=== PATIENT | female | born 1950 | race Caucasian/White ===

== ENCOUNTER 2016-08-04 12:40 | Inpatient (IN) ==
--- NOTE | 2016-08-04 15:25 | Emergency Department Note ---
Disposition Clinical Impression: Left kidney mass Diverticulitis Qualifiers: Diverticulitis site: large intestine Diverticulitis bleeding: with bleeding Diverticulitis complication: without perforation or abscess Qualified Code(s): K57.33 - Diverticulitis of large intestine without perforation or abscess with bleeding Pneumonia Qualifiers: Pneumonia type: due to unspecified organism Disposition: Admitted As Inpatient Condition: Fair Time of Disposition: 20:15 GI Bleed HPI - General Chief complaint: ED GI Bleed Stated complaint: Blood in stool,syncope Time Seen by Provider: 08/04/16 14:15 Source: patient, family Limitations: no limitations - History of Present Illness HPI Narrative: Patient is a 66-year-old female who presents with one-day history of hematochezia. Patient states that yesterday she was working in her yard, moving bags of sanded, and developed an urge to defecate. She states that she was unable to have a bowel movement. Patient made a second attempt at bowel movement, felt lightheaded, and had syncope while sitting on the toilet. Patient was found by her within 1 minute. She found with her head leaning against the bathtub. was able to arouse her. Patient had 2 episodes of bloody bowel movement following the episode of syncope. She states that she did not notice black stool. Patient admitted to left lower quadrant abdominal pain rated 7 out of 10 that occurred simultaneously with episode of syncope. Patient states the pain radiated to the midline infraumbilical region. Patient states that the pain was worsened with movement, jarring, or bumps. Patient states that she went to bed last night with a pillow underneath her left lower quadrant which made the pain better. Patient admitted to another episode of hematochezia this morning. She states that the pain is a constant 2-3 out of 10 at this time with intermittent sharp stabbing pain. Pain is nonradiating at this time. Patient admits to associated fever, diaphoresis, weakness, and one episode of watery vomit. Patient denies blurry vision, upper respiratory symptoms, chest pain, cough, wheeze, dysuria, hematuria, vaginal discharge, vaginal bleeding, muscle aches, rash. Patient had her last colonoscopy 5-6 years ago with evidence of polyps and hemorrhoids. Patient states colonoscopy was performed by Dr. Rosario. - Related Data Home Medications Medication Instructions Recorded Confirmed Atorvastatin Calcium [Lipitor] 20 mg PO HS 08/04/16 08/04/16 Calcium Carbonate [Calcium] 1,200 mg PO DAILY 08/04/16 08/04/16 Garlic 1,000 mg PO DAILY 08/04/16 08/04/16 Multivitamin [Multi-Day Vitamins] 1 each PO DAILY 08/04/16 08/04/16 [place]-3/Dha/Epa/Fish Oil [Fish Oil 1,000 mg PO DAILY 08/04/16 08/04/16 1,000 mg Softgel] Quinapril/Hydrochlorothiazide 1 each PO DAILY 08/04/16 08/04/16 [Accuretic 20-12.5 mg Tablet] Solifenacin Succinate [Vesicare] 10 mg PO DAILY 08/04/16 08/04/16 Allergies Allergy/AdvReac Type Severity Reaction Status Date / Time No Known Allergies Allergy Verified 08/04/16 13:00 All systems ED: reviewed and negative except as stated. Constitutional: Reports: as per HPI Eyes: Reports: as per HPI ENT ED: Reports: as per HPI Cardiovascular: Reports: as per HPI Respiratory: Reports: as per HPI Gastrointestinal: Reports: as per HPI Genitourinary: Reports: as per HPI Musculoskeletal: Reports: as per HPI Integumentary: Reports: as per HPI Neurological: Reports: as per HPI Psychiatric: Reports: as per HPI Endocrine: Reports: as per HPI Hematological/Lymphatic: Reports: as per HPI Allergic/Immunologic: Reports: as per HPI Past Medical History - Past Medical History Medical history: Reports: hyperlipidemia, hypertension Psychiatric history: Reports: anxiety, depression - Social History Smoking Status: Never smoker Smokeless Tobacco Status: No Alcohol use: Reports: none Drug use: Reports: none Physical Exam - General Limitations: no limitations General appearance: alert - Head Head exam: atraumatic, normocephalic - Eye Eye exam: Present: normal appearance, EOMI - Neck Neck exam: Present: normal inspection, full ROM, trachea midline, other (O carotid bruit). Absent: tenderness - Chest Chest inspection: Present: normal inspection, symmetric chest wall rise. Absent : tenderness - Respiratory Respiratory exam: Present: normal lung sounds bilaterally. Absent: respiratory distress, wheezes, stridor, accessory muscle use - Cardiovascular Cardiovascular exam: Present: regular rate, normal rhythm, diastolic murmur, +S1 , +S2. Absent: systolic murmur - Abdominal Exam Abdominal exam: Present: soft, tenderness, guarding (Don Kemal regarding the left lower quadrant and right lower quadrant palpation), rebound (Rebound tenderness to palpation of right lower quadrant), normal bowel sounds. Absent: distention (Squeezing tenderness to palpation of left lower quadrant), rigidity Abdominal tenderness: Present: RLQ, LLQ - Extremities Exam Extremities exam: Present: full ROM - Neurological Exam Neurological exam: Present: oriented X3, CN II-XII intact, normal gait - Psychiatric Psychiatric exam: Present: normal affect, normal mood - Skin Skin exam: Present: warm, dry, intact Course Vital Signs Temperature 97.5 F L 08/04/16 12:55 Pulse Rate 103 08/04/16 12:55 Respiratory Rate 14 08/04/16 12:55 Blood Pressure 132/74 08/04/16 12:55 O2 Sat by Pulse Oximetry 97 08/04/16 12:55 Temperature 97.5 F L 08/04/16 12:55 Pulse Rate 102 08/04/16 19:46 Respiratory Rate 18 08/04/16 17:30 Blood Pressure 150/82 08/04/16 19:46 O2 Sat by Pulse Oximetry 96 08/04/16 19:46 Oxygen Delivery Oxygen Delivery Room Air GI Bleed - MDM Narrative Medical decision making narrative: Patient is a 66-year-old female who presents with left lower quadrant abdominal pain and hematochezia. On exam patient had exquisite tenderness to palpation of left lower quadrant. Patient was found to have evidence of diverticulitis on CT scan. CT scan also demonstrated a triangular opacification of the left lower lung and a left renal mass suspicious for renal cell carcinoma. Patient will be admitted for treatment of diverticulitis, pneumonia, and for futher work-up of renal mass. - Lab Data Lab results reviewed: Yes I reviewed the patient's lab results. Result diagrams: 08/04/16 16:38 08/04/16 16:38 Lab Results 08/04/16 08/04/16 Range/Units 16:38 16:38 WBC 15.6 H (4.3-11.1) K/mcL RBC 4.53 (3.82-4.97) M/mcL Hgb 13.9 (11.5-15.4) g/dL Hct 41.4 (35.3-44.9) % MCV 91.4 (83.0-100.0) fL MCH 30.7 (28.0-33.3) pg MCHC 33.6 (31.6-35.5) g/dL RDW 12.8 (11.5-14.5) % Plt Count 189 (140-400) K/mcL MPV 9.8 (9.4-12.4) fL Sodium 137 (136-145) mEq/L Potassium 3.9 (3.5-4.5) mEq/L Chloride 103 (98-109) mEq/L Carbon Dioxide 24 (19-29) mEq/L BUN 15 (7-20) mg/dL Creatinine 0.98 (0.57-1.11) mg/dL Est GFR ( Amer) > 60 (> 60) Est GFR (Non-Af Amer) 57 L (> 60) BUN/Creatinine Ratio 15 (6-26) Glucose 126 H (70-99) mg/dL Calculated Osmolality 286 (280-300) Calcium 9.3 (8.6-10.8) mg/dL - Radiology Data Radiology results reviewed: Yes I reviewed the patient's radiology results. - EKG Data EKG attestation: Yes I reviewed and interpreted this EKG. EKG results narrative: EKG demonstrated normal sinus rhythm at rate of [address] segment elevations, depressions, or T-wave changes.
[2016-08-04] MEDS ORDERED: 0.9 % Sodium Chloride 1,000 ML IVC ONE (15:44)
--- NOTE | 2016-08-04 15:47 | Emergency Department Note ---
START Narrative - START START: I examined this patient and my medical decision-making was reviewed with the MECHANICAL INSULATOR/PA/Advanced Practice Nurse/Resident Physician. I agree with the documented findings, disposition and treatment plan as described except to the extent set forth below. I did see the patient spoke with her. She did have an episode of blood in the stool and left lower quadrant pain and syncope yesterday. Was preceded by lightheadedness. No biting of tongue or blood in the mouth or seizure or shaking activity or incontinence. No localized numbness or weakness of the extremities, slurred speech, facial droop or confusion. Patient does have testing pending which includes labs and a CT scan at this point she is asymptomatic. 1547 I did review the EKG showing normal sinus rhythm with a rate of 93 without acute ischemic changes. There is some baseline artifact. No evidence of Brugada syndrome, hypertrophic cardiomyopathy, WPW, prolonged QT or any ischemia 1628
[2016-08-04 16:52] LABS: Hematocrit 41.4 % (35.3-44.9); Hemoglobin 13.9 g/dL (11.5-15.4); Mean Corpuscular HGB Conc 33.6 g/dL (31.6-35.5); Mean Corpuscular Hemoglobin 30.7 pg (28.0-33.3); Mean Corpuscular Volume 91.4 fL (83.0-100.0); Mean Platelet Volume 9.8 fL (9.4-12.4); Platelet Count 189 K/mcL (140-400); Red Blood Count 4.53 M/mcL (3.82-4.97); Red Cell Distribution Width 12.8 % (11.5-14.5)
[2016-08-04 17:05] LABS: BUN/Creatinine Ratio 15 (6-26); Blood Urea Nitrogen 15 mg/dL (7-20); Calcium 9.3 mg/dL (8.6-10.8); Carbon Dioxide 24 mEq/L (19-29); Chloride 103 mEq/L (98-109); Glucose 126 mg/dL (70-99); Osmolality,Calculated 286 (280-300); Potassium 3.9 mEq/L (3.5-4.5); Sodium 137 mEq/L (136-145); eGFR For African Americans > 60 (> 60); eGFR For Non-African Americans 57 (> 60)
[2016-08-04] MEDS ORDERED: *HR* Morphine 2 MG/ML SYRINGE IVP ONE (17:14)
[2016-08-04] MEDS ORDERED: MetroNIDAZOLE 500 MG/100 ML 500 MG/100 ML BAG IVPB ONE (17:54)
[2016-08-05] MEDS ORDERED: Ondansetron 4 MG/2 ML VIAL IVP PRN (00:24)
[2016-08-05] MEDS ORDERED: *HR* Morphine 2 MG/ML SYRINGE IVP PRN (00:24)
[2016-08-05] MEDS ORDERED: Acetaminophen 325 MG TABLET PO PRN (00:24)
[2016-08-05] MEDS ORDERED: Naloxone 0.4 MG/ML INJ IVP PRN (00:24)
[2016-08-05] MEDS ORDERED: *HR* OxyCODONE Immed Rel 5 MG TABLET PO PRN (00:24)
--- NOTE | 2016-08-05 00:31 | Internal Med History&Physical ---
<Matthew Wyatt - Last Filed: 08/05/16 01:17> Date of Encounter: 08/05/16 Time of Encounter: 00:31 Assessment and Plan (1) Diverticulitis Current visit: Yes Status: Acute Patient has leukocytosis with left lower quadrant pain and hematochezia. CT scan shows diverticulitis. We will treat with fluid hydration, bowel rest, IV antibiotics with Cipro and Flagyl. Patient's hemoglobin is stable. We will trend hemoglobin. No evidence of perforation or generalized peritonitis. Qualifiers: Diverticulitis site: large intestine Diverticulitis bleeding: with bleeding Diverticulitis complication: without perforation or abscess Qualified Code(s): K57.33 - Diverticulitis of large intestine without perforation or abscess with bleeding (2) Abnormal CT scan Current visit: Yes Status: Acute CT scan showed an incidental finding of a 1.6cm mass in the left kidney that is concerning for renal cell carcinoma. Radiology recommends a contrast enhanced CT. We will fluid hydrate the patient and perform CT scan abdomen and pelvis with IV contrast in the morning. We will consult urology for follow-up of this mass. CT scan also showed a left lower lobe infiltrate that is concerning for pneumonia. Clinically the patient has no signs and symptoms of pneumonia. Antibiotic regimen used to treat the patient's diverticulitis should cover for any evolving pneumonia. (3) Hypertension Current visit: Yes Status: Acute Stable this time. Continue home medication. Qualifiers: Hypertension type: essential hypertension Qualified Code(s): I10 - Essential (primary) hypertension (4) DVT prophylaxis Current visit: Yes Status: Acute Given the patient's medication pharmacologic DVT prophylaxis is contraindicated. We will use [facility] Internal Medicine - H&P: HPI Chief complaint: Bright red blood per rectum Admitted From: Emergency Dept Plans for Post Hospital Care: Home History of present illness: Ms. Laguna is a 66 year old female with history of hypertension who presents with bright blood per rectum. Patient states that yesterday she felt like she had the urge to defecate and had difficulty defecating and actually had a syncopal episode on the toilet. She was unable to defecate and had prior blood per rectum. She reports 3 episodes yesterday and one episode today. She states she never had anything like this before. She reports left lower quadrant abdominal pain that radiates to the right lower quadrant. She reports nausea with 1 episode of vomiting. She reports subjective fevers and chills. She denies dysuria, hematuria. Past Med Surg Social Fam HX - Past Medical History Medical history: hyperlipidemia, hypertension Psychiatric history: anxiety, depression - Past Surgical History Surgical History: appendectomy - Social History Smoking Status: Never smoker Smokeless Tobacco Status: No Alcohol use: none Drug use: none - Family History Mother Living Status: Hx Family GI Disorders: Yes (Diverticulitis) Internal Medicine - H&P: Meds Atorvastatin Calcium [Lipitor] 20 mg PO HS 08/04/16 [History] Calcium Carbonate [Calcium] 1,200 mg PO DAILY 08/04/16 [History] Garlic 1,000 mg PO DAILY 08/04/16 [History] Multivitamin [Multi-Day Vitamins] 1 each PO DAILY 08/04/16 [History] [place]-3/Dha/Epa/Fish Oil [Fish Oil 1,000 mg Softgel] 1,000 mg PO DAILY 08/04/16 [History] Quinapril/Hydrochlorothiazide [Accuretic 20-12.5 mg Tablet] 1 each PO DAILY 02/10 [History] Solifenacin Succinate [Vesicare] 10 mg PO DAILY 08/04/16 [History] Allergies No Known Allergies Allergy (Verified 08/04/16 13:00) All Systems PM: A 10-system review of systems was performed and is negative for pertinent findings except as documented above in the HPI. - Constitutional Constitutional: chills, fever(s) - EENT Eyes: no change in vision Nose, mouth and throat: no sinus pain, no sinus pressure, no sore throat - Cardiovascular Cardiovascular ROS IM: syncope, no chest pain, no dyspnea, no lightheadedness - Respiratory Respiratory: no cough, no dyspnea, no chest congestion, no excessive phlegm production, no change in phlegm color - Gastrointestinal Gastrointestinal: abdominal pain, hematochezia, nausea, vomiting, no hematemesis , no melena - Genitourinary Genitourinary: no dysuria, no hematuria - Musculoskeletal Musculoskeletal ROS IM: no numbness, no tingling - Neurological Neurological ROS: no numbness, no tingling, no weakness - Psychiatric Psychiatric: no anxiety - Allergic/Immunologic Allergic/Immunologic: no GI upset with certain foods - Constitutional Vitals: Temp Pulse Resp BP Pulse Ox 99.3 F 100 14 114/59 96 08/04/16 23:30 08/04/16 23:30 08/04/16 23:30 08/04/16 23:30 08/04/16 23:30 General appearance: Present: A&O X 3, pleasant, no acute distress, answers questions appropriately - Head Head exam: Present: atraumatic, normal inspection, normocephalic - ENT ENT exam: Present: mucous membranes moist - Respiratory Respiratory exam: Present: CTAB. Absent: rales, rhonchi, wheezes - Cardiovascular Cardiovascular exam: Present: RRR. Absent: gallop, rubs, systolic murmur - GI/Abdominal GI/Abdominal exam: Present: guarding, normal bowel sounds, soft, tenderness ( Left lower quadrant), no peritoneal signs. Absent: distended, firm, rigid - Extremities Exam Extremities exam: Present: warm. Absent: pedal edema, tenderness - Neurological Exam Neurological exam: Present: alert, CN II-XII intact, oriented X3, no focal deficits Internal Med - H&P Results - Labs CBC & Chem 7: 08/04/16 16:38 08/04/16 16:38 <Collin Rico - Last Filed: 08/05/16 03:19> Date of Encounter: 08/05/16 Time of Encounter: 02:05 - Constitutional Vitals: Temp Pulse Resp BP Pulse Ox 99.3 F 100 14 114/59 96 08/04/16 23:30 08/04/16 23:30 08/04/16 23:30 08/04/16 23:30 08/04/16 23:30 General appearance: Present: A&O X 3, pleasant, no acute distress - Head Head exam: Present: atraumatic, normal inspection - Expanded Head Exam Head exam expanded: Absent: general tenderness - Eye Eye exam: Present: EOMI, PERRL. Absent: scleral icterus Pupils: Present: normal accommodation - ENT ENT exam: Present: mucous membranes moist - Neck Neck exam general surgery: Present: full ROM, supple. Absent: tenderness - Respiratory Respiratory exam: Present: CTAB. Absent: rales, wheezes - Cardiovascular Cardiovascular exam: Present: RRR, +S1, +S2. Absent: diastolic murmur, systolic murmur - GI/Abdominal GI/Abdominal exam: Present: normal bowel sounds, soft, tenderness, no peritoneal signs. Absent: hepatomegaly, mass, rebound, splenomegaly - Extremities Exam Extremities exam: Absent: calf tenderness, joint swelling - Back Exam Back exam: Present: normal inspection. Absent: CVA tenderness (L), CVA tenderness (R) - Neurological Exam Neurological exam: Present: no focal deficits - Psychiatric Psychiatric exam: Present: normal affect, normal mood - Skin Skin exam: Present: dry, warm. Absent: rash Internal Med - H&P Results - Labs CBC & Chem 7: 08/04/16 16:38 08/04/16 16:38 - Diagnostic Studies CT scan - abdomen Status: image reviewed by me (report reviewed as well -- left renal mass noted) - Attending Attestation I discussed the patient KENAITZE, PMH, ROS, lab data, and exam findings with Dr. Wyatt. I then saw patient and examined her independently as well. Pt is in no distress, but she does have some LLQ pain and some guarding. She is asking for food, but I will keep her npo for now and ask my daytime colleagues to reassess her and her labs later today. We will continue IVF and IV antibiotics. I anticipate she will improve quickly and she will be permitted to have some PO intake soon. Regarding her left renal mass, I agree with the plan to CT scan her left kidney. Additionally, I agree with the urology consultation to assist with and coordinate care after discharge. Other than my comments noted above and noted exam findings, I agree with Dr. Wyatt's assessment and plan.
[2016-08-05] MEDS ORDERED: 0.9 % Sodium Chloride 1,000 ML ONE (00:39)
[2016-08-05] MEDS: 0.9 % Sodium Chloride 1,000 ML IVC SCH ×2 (00:56→12:45)
[2016-08-05] MEDS: MetroNIDAZOLE 500 MG/100 ML 500 MG/100 ML BAG IVPB SCH ×4 (01:10→23:32)
[2016-08-05 03:31] LABS: Basophils % 0.1 %; Eosinophils % 0.2 %; Hematocrit 37.3 % (35.3-44.9); Hemoglobin 12.6 g/dL (11.5-15.4); INR 1.3; Immature Granulocytes % 0.4 % (0-4); Lymphocytes # 1.5 K/mcL (0.6-4.6); Lymphocytes % 10.5 %; Mean Corpuscular HGB Conc 33.8 g/dL (31.6-35.5); Mean Corpuscular Hemoglobin 31.1 pg (28.0-33.3); Mean Corpuscular Volume 92.1 fL (83.0-100.0); Mean Platelet Volume 10.4 fL (9.4-12.4); Monocytes % 7.1 %; Neutrophils # 11.3 K/mcL (1.6-8.9); Platelet Count 163 K/mcL (140-400); Prothrombin Time 13.7 Seconds (9.4-12.1); Red Blood Count 4.05 M/mcL (3.82-4.97); Segmented Neutrophils % 81.7 %
[2016-08-05 03:41] LABS: BUN/Creatinine Ratio 17 (6-26); Blood Urea Nitrogen 14 mg/dL (7-20); Calcium 8.5 mg/dL (8.6-10.8); Carbon Dioxide 24 mEq/L (19-29); Chloride 105 mEq/L (98-109); Glucose 106 mg/dL (70-99); Magnesium 1.7 mg/dL (1.6-2.6); Osmolality,Calculated 285 (280-300); Potassium 3.7 mEq/L (3.5-4.5); Sodium 137 mEq/L (136-145); eGFR For African Americans > 60 (> 60); eGFR For Non-African Americans > 60 (> 60)
[2016-08-05 06:50] LABS: Bilirubin,Urine Negative (Negative); Blood,Urine Negative (Negative); Clarity,Urine Cloudy (Clear); Color,Urine Dark Yellow (Yellow); Glucose,Urine (UA) Normal (Normal); Ketones,Urine Negative (Negative); Leukocyte Esterase,Urine Moderate (Negative); Nitrite,Urine Negative (Negative); PH,Urine 5.5 pH Units (5.0-8.0); Protein,Urine Negative (Neg-Trace); Specific Gravity,Urine 1.021 (1.010-1.025); Urobilinogen,Urine Normal (Normal)
[2016-08-05 06:51] LABS: Bacteria,Urine None Seen per hpf (None-Few); Hyaline Casts,Urine None Seen per lpf (None-Few); RBC,Urine 0-3 per hpf (0-3); Squamous Epithelial Cell,Urine Many per lpf (None-Few); WBC,Urine 15-30 per hpf (0-3)
[2016-08-05] MEDS: Lisinopril-HCTZ 20-12.5mg TABLET PO SCH (09:35)
--- NOTE | 2016-08-05 13:28 | Electrocardiograph Report ---
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
--- NOTE | 2016-08-05 16:57 | Urology - Consult Note ---
Date of Encounter: 08/06/16 Time of Encounter: 16:57 - Assessment and Plan (1) Complex renal cyst Current Visit: Yes Status: Acute Assessment and plan: I reviewed the most recent CT scan and discussed with the patient that the renal lesion in question appears to be a mildly complex renal cyst. We discussed that this has less than 10% potential for malignancy. surgical intervention at this time is not recommended. Follow-up imaging in 6 months is recommended. This can be coordinated by urology Urology CN:HPI History of present illness: renal mass found incidently on CT scan. currently admitted for diverticulitis. Follow-up CT with contrast demonstrates a complex renal cyst without significant enhancement. patient had no prior knowledge of the renal lesion Past Med Surg Social Fam HX - Past Medical History Medical history: hyperlipidemia, hypertension Psychiatric history: anxiety, depression - Past Surgical History Surgical History: appendectomy - Social History Smoking Status: Never smoker Smokeless Tobacco Status: No Alcohol use: none Drug use: none - Family History Mother Living Status: Hx Family GI Disorders: Yes (Diverticulitis) Medications and Allergies Atorvastatin Calcium [Lipitor] 20 mg PO HS 08/04/16 [History] Calcium Carbonate [Calcium] 1,200 mg PO DAILY 08/04/16 [History] Garlic 1,000 mg PO DAILY 08/04/16 [History] Multivitamin [Multi-Day Vitamins] 1 each PO DAILY 08/04/16 [History] [place]-3/Dha/Epa/Fish Oil [Fish Oil 1,000 mg Softgel] 1,000 mg PO DAILY 08/04/16 [History] Quinapril/Hydrochlorothiazide [Accuretic 20-12.5 mg Tablet] 1 each PO DAILY 02/10 [History] Solifenacin Succinate [Vesicare] 10 mg PO DAILY 08/04/16 [History] Allergies No Known Allergies Allergy (Verified 08/04/16 13:00) Review of Systems - Constitutional fever(s), no chills - EENT Nose, mouth and throat: no dizziness - Cardiovascular no chest pain - Respiratory no cough - Gastrointestinal abdominal pain, nausea - Genitourinary Genitourinary: no flank pain - Musculoskeletal back pain - Integumentary no erythema - Neurological no confusion - Psychiatric no anxiety - Hematologic/Lymphatic no easy bleeding - Allergic/Immunologic no throat swelling Exam Initial Vital Signs Temp Pulse Resp BP Pulse Ox 97.5 F L 103 14 132/74 97 08/04/16 12:55 08/04/16 12:55 08/04/16 12:55 08/04/16 12:55 08/04/16 12:55 - General physical appearance Present: well developed, no distress - Eyes Present: PERRL - ENT Present: normal nares - Neck Present: no masses - Respiratory Present: normal respiratory effort - Abdomen Abdomen: Present: soft - Integumentary Present: no rash - Neurologic Present: normal coordination. Absent: disoriented, confused Urology Results - Labs 08/06/16 00:46 08/06/16 00:46 Abnormal lab results WBC 13.9 K/mcL (4.3-11.1) H 08/05/16 02:56 Neutrophils # 11.3 K/mcL (1.6-8.9) H 08/05/16 02:56 PT 13.7 Seconds (9.4-12.1) H 08/05/16 02:56 Glucose 106 mg/dL (70-99) H 08/05/16 02:56 POC Glucose 94 (58-89) H 08/05/16 10:58 Calcium 8.5 mg/dL (8.6-10.8) L 08/05/16 02:56 Urine Clarity Cloudy (Clear) A 08/05/16 06:30 Ur Leukocyte Esterase Moderate (Negative) H 08/05/16 06:30 Urine Microscopic WBC 15-30 per hpf (0-3) H 08/05/16 06:30 Ur Squamous Epith Cells Many per lpf (None-Few) H 08/05/16 06:30 Diabetes panel 08/05/16 Range/Units 02:56 Sodium 137 (136-145) mEq/L Potassium 3.7 (3.5-4.5) mEq/L Chloride 105 (98-109) mEq/L Carbon Dioxide 24 (19-29) mEq/L BUN 14 (7-20) mg/dL Creatinine 0.81 (0.57-1.11) mg/dL Glucose 106 H (70-99) mg/dL Calcium 8.5 L (8.6-10.8) mg/dL Calcium panel 08/05/16 Range/Units 02:56 Calcium 8.5 L (8.6-10.8) mg/dL Pituitary panel 08/05/16 Range/Units 02:56 Sodium 137 (136-145) mEq/L Potassium 3.7 (3.5-4.5) mEq/L Chloride 105 (98-109) mEq/L Carbon Dioxide 24 (19-29) mEq/L BUN 14 (7-20) mg/dL Creatinine 0.81 (0.57-1.11) mg/dL Glucose 106 H (70-99) mg/dL Calcium 8.5 L (8.6-10.8) mg/dL Adrenal panel 08/05/16 Range/Units 02:56 Sodium 137 (136-145) mEq/L Potassium 3.7 (3.5-4.5) mEq/L Chloride 105 (98-109) mEq/L Carbon Dioxide 24 (19-29) mEq/L BUN 14 (7-20) mg/dL Creatinine 0.81 (0.57-1.11) mg/dL Glucose 106 H (70-99) mg/dL Calcium 8.5 L (8.6-10.8) mg/dL All other labs normal. Consult Discharge Plan - Plan Referrals: Phi Adams DO [Primary Care Provider] -
[2016-08-06 01:09] LABS: Basophils % 0.2 %; Eosinophils # 0.1 K/mcL (0.0-0.6); Eosinophils % 0.7 %; Hematocrit 34.4 % (35.3-44.9); Hemoglobin 11.6 g/dL (11.5-15.4); Immature Granulocytes % 0.4 % (0-4); Lymphocytes # 1.5 K/mcL (0.6-4.6); Lymphocytes % 15.3 %; Mean Corpuscular HGB Conc 33.7 g/dL (31.6-35.5); Mean Corpuscular Hemoglobin 31.6 pg (28.0-33.3); Mean Corpuscular Volume 93.7 fL (83.0-100.0); Mean Platelet Volume 10.1 fL (9.4-12.4); Monocytes # 0.8 K/mcL (0.0-1.3); Monocytes % 7.5 %; Neutrophils # 7.6 K/mcL (1.6-8.9); Platelet Count 147 K/mcL (140-400); Red Blood Count 3.67 M/mcL (3.82-4.97); Red Cell Distribution Width 12.7 % (11.5-14.5); Segmented Neutrophils % 75.9 %
[2016-08-06 01:10] LABS: BUN/Creatinine Ratio 12 (6-26); Blood Urea Nitrogen 9 mg/dL (7-20); Calcium 8.3 mg/dL (8.6-10.8); Carbon Dioxide 21 mEq/L (19-29); Chloride 107 mEq/L (98-109); Glucose 82 mg/dL (70-99); Osmolality,Calculated 284 (280-300); Potassium 3.8 mEq/L (3.5-4.5); Sodium 138 mEq/L (136-145); eGFR For African Americans > 60 (> 60); eGFR For Non-African Americans > 60 (> 60)
[2016-08-06] MEDS: Lisinopril-HCTZ 20-12.5mg TABLET PO SCH (07:39)
[2016-08-06] MEDS: MetroNIDAZOLE 500 MG/100 ML 500 MG/100 ML BAG IVPB SCH ×2 (07:40→15:13)
--- NOTE | 2016-08-06 12:35 | Internal Med Progress Note ---
Date of Encounter: 08/06/16 Time of Encounter: 12:33 - Assessment and plan (1) Diverticulitis Current Visit: Yes Status: Acute Assessment and plan: Acute descending colon diverticulitis versus colitis Continue ciprofloxacin and Flagyl day 2 Advance diet, discontinued IV fluids Pain is improving Qualifiers: Diverticulitis site: large intestine Diverticulitis bleeding: with bleeding Diverticulitis complication: without perforation or abscess Qualified Code(s): K57.33 - Diverticulitis of large intestine without perforation or abscess with bleeding (2) Hyperlipidemia Current Visit: Yes Status: Acute Qualifiers: Hyperlipidemia type: unspecified Qualified Code(s): E78.5 - Hyperlipidemia , unspecified (3) Hypertension Current Visit: Yes Status: Acute Assessment and plan: Stable on lisinopril and hydrochlorothiazide Qualifiers: Hypertension type: essential hypertension Qualified Code(s): I10 - Essential (primary) hypertension (4) Complex renal cyst Current Visit: Yes Status: Acute Assessment and plan: Was evaluated by the urology service, CT scan showed a left complex kidney cyst We will need follow-up CT scans in a few months, will be followed by urology, unlikely malignant - Subjective Interval history: Kathy complain of pain over the left hemiabdomen 510, denies any nausea, no diarrhea although she had some blood in her stool yesterday, no fevers, no dysuria, no chest pain or shortness of breath - Constitutional Vitals: Temp Pulse Resp BP Pulse Ox 98.6 F 82 18 110/65 94 08/06/16 11:44 08/06/16 11:44 08/06/16 11:44 08/06/16 11:44 08/06/16 11:44 General appearance: Present: A&O X 3, pleasant, no acute distress - Head Head exam: Present: atraumatic, normocephalic - Eye Eye exam: Present: PERRL, conjuntiva pink, sclera anicteric Pupils: Present: PERRL - Neck Neck exam general surgery: Present: supple, trachea midline. Absent: lymphadenopathy - Respiratory Respiratory exam: Present: CTAB. Absent: accessory muscle use, rales, rhonchi, wheezes - Cardiovascular Cardiovascular exam: Present: RRR, +S1, +S2. Absent: diastolic murmur, gallop, rubs, systolic murmur - GI/Abdominal GI/Abdominal exam: Present: normal bowel sounds, soft, tenderness (Left lower quadrant tenderness), no peritoneal signs. Absent: distended, rebound - Extremities Exam Extremities exam: Present: warm, radial pulses palpable and symetrical. Absent : calf tenderness, cyanotic, pedal edema - Neurological Exam Neurological exam: Present: CN II-XII intact, oriented X3, no focal deficits. Absent: pronater drift, facial droop, speech deficit - Skin Skin exam: Present: dry, intact Internal Medicine: Result - Labs CBC & Chem 7: 08/06/16 00:46 08/06/16 00:46 Labs: Short CBC 08/06/16 Range/Units 00:46 WBC 10.0 (4.3-11.1) K/mcL Hgb 11.6 (11.5-15.4) g/dL Hct 34.4 L (35.3-44.9) % Plt Count 147 (140-400) K/mcL Neutrophils # 7.6 (1.6-8.9) K/mcL BMP 08/06/16 00:46 Sodium 138 Potassium 3.8 Chloride 107 Carbon Dioxide 21 BUN 9 Creatinine 0.78 Glucose 82 Calcium 8.3 L - ABG Interpretation ABG results: PT/INR, D-dimer PT 13.7 Seconds (9.4-12.1) H 08/05/16 02:56 - VTE Documentation of Mechanical Device: Intermittent pneumatic compression device Consult Discharge Plan - Plan Referrals: Phi Adams DO [Primary Care Provider] -
[2016-08-07] MEDS: MetroNIDAZOLE 500 MG/100 ML 500 MG/100 ML BAG IVPB SCH ×2 (00:16→07:39)
[2016-08-07 05:19] LABS: Hematocrit 37.8 % (35.3-44.9); Hemoglobin 12.6 g/dL (11.5-15.4); Mean Corpuscular HGB Conc 33.3 g/dL (31.6-35.5); Mean Corpuscular Volume 92.9 fL (83.0-100.0); Mean Platelet Volume 10.2 fL (9.4-12.4); Platelet Count 184 K/mcL (140-400); Red Blood Count 4.07 M/mcL (3.82-4.97); Red Cell Distribution Width 12.5 % (11.5-14.5)
[2016-08-07 05:32] LABS: BUN/Creatinine Ratio 9 (6-26); Blood Urea Nitrogen 8 mg/dL (7-20); Calcium 9.1 mg/dL (8.6-10.8); Carbon Dioxide 27 mEq/L (19-29); Chloride 105 mEq/L (98-109); Glucose 101 mg/dL (70-99); Osmolality,Calculated 288 (280-300); Potassium 4.2 mEq/L (3.5-4.5); Sodium 140 mEq/L (136-145); eGFR For African Americans > 60 (> 60); eGFR For Non-African Americans > 60 (> 60)
[2016-08-07] MEDS: Lisinopril-HCTZ 20-12.5mg TABLET PO SCH (07:39)
--- NOTE | 2016-08-07 10:10 | Discharge Summary ---
Date of Encounter: 08/07/16 Time of Encounter: 10:03 - Discharge Diagnosis (1) Diverticulitis Priority: Primary Status: Acute Comments: Acute descending colon diverticulitis versus colitis Qualifiers: Diverticulitis site: large intestine Diverticulitis bleeding: with bleeding Diverticulitis complication: without perforation or abscess Qualified Code(s): K57.33 - Diverticulitis of large intestine without perforation or abscess with bleeding (2) Hyperlipidemia Priority: Secondary Status: Acute Qualifiers: Hyperlipidemia type: unspecified Qualified Code(s): E78.5 - Hyperlipidemia , unspecified (3) Hypertension Priority: Secondary Status: Acute Qualifiers: Hypertension type: essential hypertension Qualified Code(s): I10 - Essential (primary) hypertension (4) Complex renal cyst Priority: Secondary Status: Acute Comments: Was evaluated by the urology service, CT scan showed a left complex kidney cyst We will need follow-up CT scans in a few months, will be followed by urology, unlikely malignant - Discharge Medications Prescriptions: OxyCODONE Immed Rel [Roxicodone 5 MG] 5 mg PO Q6HR PRN #25 tablet PRN Reason: Moderate Pain (4-6) Ciprofloxacin [Cipro] 500 mg PO BID #10 tablet metroNIDAZOLE [Flagyl] 500 mg PO TID #15 tablet Home Medications: Atorvastatin Calcium [Lipitor] 20 mg PO HS 08/04/16 [History] Calcium Carbonate [Calcium] 1,200 mg PO DAILY 08/04/16 [History] Garlic 1,000 mg PO DAILY 08/04/16 [History] Multivitamin [Multi-Day Vitamins] 1 each PO DAILY 08/04/16 [History] [place]-3/Dha/Epa/Fish Oil [Fish Oil 1,000 mg Softgel] 1,000 mg PO DAILY 08/04/16 [History] Quinapril/Hydrochlorothiazide [Accuretic 20-12.5 mg Tablet] 1 each PO DAILY 02/10 [History] Solifenacin Succinate [Vesicare] 10 mg PO DAILY 08/04/16 [History] Ciprofloxacin [Cipro] 500 mg PO BID #10 tablet 08/07/16 [Rx] OxyCODONE Immed Rel [Roxicodone 5 MG] 5 mg PO Q6HR PRN #25 tablet 08/07/16 [Rx] metroNIDAZOLE [Flagyl] 500 mg PO TID #15 tablet 08/07/16 [Rx] Allergies/Adverse Reactions: Allergies No Known Allergies Allergy (Verified 08/04/16 13:00) Date of admission: 08/06/16 12:38 Primary care physician: Phi Adams DO - Patient Status Disposition: Home, Self-Care Condition: Good Overall status at discharge: patient is progressing back to baseline - Discharge Instructions Follow Up With: Phi Adams DO [Primary Care Provider] - Additional Instructions: Follow with primary care physician within the next 7 days. Complete 5 more days of Flagyl and ciprofloxacin, avoid alcohol intake while taking Flagyl. Follow up with urology within the next 3-4 weeks. Follow up with GI within the next 3-4 weeks. Continue low residue diet - Diet and Activity Activity: increase activity as tolerated Diet: low fat, low cholesterol (Low residue) Hospital course: Ms. Laguna is a 66 year old female with history of hypertension who presents with bright blood per rectum. Patient states that she felt like she had the urge to defecate and had difficulty defecating, actually had a syncopal episode on the toilet. She was unable to defecate and had prior blood per rectum. She reported 4 episodes. total. She states she never had anything like this before. She reported left lower quadrant abdominal pain that radiated to the right lower quadrant. CT scan showed descending colon diverticulitis/colitis and an incidental finding of a 1.6cm mass in the left kidney that is concerning for renal cell carcinoma. She was started on ciprofloxacin and Flagyl IV. Also urology was consulted and a new CT scan of the abdomen with contrast was performed showing a left complex kidney cyst but according to urology has only 10% of chances of being malignant for which she will need to follow-up with urology and had another CAT scan in a few months. Patient was able to tolerate her diet, is feeling much better today, was given the option to stay another day but prefers to go home as its Mother's Day. She will complete 5 more days of ciprofloxacin and Flagyl. - Time Spent with Patient Total time spent providing and/or coordinating discharge services: Greater than 30 minutes (40 min) - Constitutional Vitals: Temp Pulse Resp BP Pulse Ox 98.6 F 66 18 117/61 95 08/07/16 06:41 08/07/16 06:41 08/07/16 06:41 08/07/16 06:41 08/07/16 06:41 General appearance: Present: A&O X 3, pleasant, no acute distress - Head Head exam: Present: atraumatic, normocephalic - Eye Eye exam: Present: PERRL, conjuntiva pink, sclera anicteric Pupils: Present: PERRL - Neck Neck exam general surgery: Present: supple, trachea midline. Absent: lymphadenopathy - Respiratory Respiratory exam: Present: CTAB. Absent: accessory muscle use, rales, rhonchi, wheezes - Cardiovascular Cardiovascular exam: Present: RRR, +S1, +S2. Absent: diastolic murmur, gallop, rubs, systolic murmur - GI/Abdominal GI/Abdominal exam: Present: normal bowel sounds, soft, no peritoneal signs. Absent: distended, tenderness - Extremities Exam Extremities exam: Present: tenderness (Minimal tenderness in the left lower quadrant), warm, radial pulses palpable and symetrical. Absent: calf tenderness , cyanotic, pedal edema - Neurological Exam Neurological exam: Present: CN II-XII intact, oriented X3, no focal deficits. Absent: pronater drift, facial droop, speech deficit - Skin Skin exam: Present: dry, intact - VTE Documentation of Mechanical Device: Intermittent pneumatic compression device
[2016-08-07 10:47] VITALS: BP 108/70
== END 2016-08-07 13:28 | disposition home or self-care (01) | DRG 379 ==
LOC: 3ANU 12:40 → EMEROO 12:40 → 3ANU 20:54
PROVIDERS: ADMIT Internal Medicine; ATTEND Internal Medicine